=== PATIENT | male | born 1980 | race Caucasian/White ===

== ENCOUNTER 2017-01-23 18:07 | Emergency (ER) | payer MEDICARE, OTHER ==
[~2017-01-23] VITALS: Ht 167.6 cm; Wt 99.8 kg
[~2017-01-23 18:07] MED LIST: ACET325T9 PO; ARIP20TA8 PO; ASPI81TA2 PO; CHOL10003 PO; DIPH50CA PO; DIVA500T17 PO; DIVA500T9 PO; FLUO20CA8 PO; GABA-586 PO; LEVO100T5 PO; LISI40TA PO; MELO-150 PO; METO50TA2 PO; PHEN100C PO; PRAZ2CAP2 PO; PRAZ5CAP2 PO; PROC5TAB14 PO; QUET50TA5 PO; SERT100T PO; SULI200T2 PO; TOPI100T90 PO
[2017-01-23] MEDS ORDERED: IV NORMAL SALINE 1000ML BAG 1,000 ML IV ONE (18:45)
[2017-01-23] MEDS ORDERED: LORAZEPAM 2 MG/ML VIAL IV ONE (18:45)
[2017-01-23 18:50] LABS: BASO % 1 % (0-3); EOS % 0 % (0-3); HEMATOCRIT 43.3 % (39.0-53.0); HEMOGLOBIN 14.3 g/dL (13.0-17.5); LYMPH % 33 % (24-48); MEAN CORPUSCULAR HEMOGLOBIN 29 pg (25-35); MEAN CORPUSCULAR HGB CONC 33 g/dL (31-37); MEAN CORPUSCULAR VOLUME 88 fL (79-100); MONO % 6 % (0-9); NEUT % 61 % (31-73); PLATELET COUNT 224 x10^3/uL (140-400); RED BLOOD COUNT 4.94 x10^6/uL (4.30-5.70); RED CELL DISTRIBUTION WIDTH 14.1 % (11.5-14.5); WHITE BLOOD COUNT 9.3 x10^3/uL (4.0-11.0)
[2017-01-23 18:59] LABS: CALCIUM 9.2 mg/dL (8.5-10.1); CREATININE 1.2 mg/dL (0.7-1.3); GFR 69.3; POTASSIUM 3.9 mmol/L (3.5-5.1)
--- NOTE | 2017-01-23 19:00 | ED.ADGEN ---
Past Medical History Past Medical History: Hypertension, Migraines, Seizure, Other Additional Past Medical Histor: TBI,PTSD Past Surgical History: Appendectomy, Tonsillectomy, Other Additional Past Surgical Histo: R)knee realignment,Cyst R)shoulder removed, ADENOIDECTOMY Alcohol Use: None Drug Use: None Adult General Chief Complaint Chief Complaint: SEIZURE HPI HPI Patient is a 36 year old man, reported history of TBI, PTSD, seizure, who presents the emergency department via EMS with report of being found lying on the ground of the restroom at [facility] with concern for seizure activity. Per EMS report, patient experienced a 15 second to 45 second shaking episode en route to the ED, and received 5 mg of Versed IM. On arrival to the emergency department, patient is awake, alert and oriented 3, GCS 15, noted be mildly tremulous. Patient states that he has a headache on the top of his head, denies any neck pain, any shortness breath, chest pain, any weakness, numbness, tingling or other complaints. States he was feeling well before this occurred. States that "I feel after I have a seizure". Denies any drugs, alcohol or cigarettes, states he is compliant with all medications including Topamax for his seizure disorder. Review of Systems Review of Systems Constitutional: Denies fever or chills. [] Eyes: Denies change in visual acuity. [] HENT: Denies nasal congestion or sore throat. [] Respiratory: Denies cough or shortness of breath. [] Cardiovascular: Denies chest pain or edema. [] GI: Denies abdominal pain, nausea, vomiting, bloody stools or diarrhea. [] : Denies dysuria. [] Musculoskeletal: Denies back pain or joint pain. [] Integument: Denies rash. [] Neurologic: Denies focal weakness or sensory changes. [] Headache. Seizure activity. Endocrine: Denies polyuria or polydipsia. [] Lymphatic: Denies swollen glands. [] Psychiatric: Denies depression or anxiety. [] Current Medications Current Medications Current Medications Medications (Trade) Dose Ordered Sig/Madison Start Time Stop Time Status Last Admin Dose Admin Lorazepam (Ativan) 1 mg 1X ONCE 01/23/17 18:45 01/23/17 18:46 DC 01/23/17 18:49 1 MG Sodium Chloride (Iv Sodium Chloride 0.9% 1000ml Bag) 1,000 ml @ 1,000 mls/hr 1X ONCE 01/23/17 18:45 01/23/17 19:44 DC 01/23/17 18:50 1,000 MLS/HR Allergies Allergies Allergies Coded Allergies Type Severity Reaction Last Updated Verified Penicillins Allergy Intermediate Rash 10/30/14 Yes hydrocodone Allergy Intermediate Rash 04/28/16 Yes oxycodone Adverse Reaction Intermediate Nausea 04/30/16 Yes Physical Exam Physical Exam Constitutional: Well developed, well nourished, no acute distress, non-toxic appearance. [Mildly tremulous in the extremities. HENT: Normocephalic, atraumatic, bilateral external ears normal, oropharynx moist, no oral exudates, nose normal. [] Eyes: PERRLA, EOMI, conjunctiva normal, no discharge. [] Neck: Normal range of motion, no tenderness, supple, no stridor. [] Cardiovascular:Heart rate regular rhythm, no murmur, S1, S2, rubs or gallops. [] Lungs & Thorax: Bilateral breath sounds clear to auscultation, no wheezing, rhonchi, rales. No chest wall crepitus or tenderness. [] Abdomen: Bowel sounds normal, soft, no tenderness, no masses, no pulsatile masses. [] Skin: Warm, dry, no erythema, no rash. [] Back: No tenderness, no CVA tenderness. [] Extremities: No tenderness, no cyanosis, no clubbing, ROM intact, no edema. Negative Homans sign. Mildly tremulous. [] Neurologic: Alert and oriented X 3, normal motor function, normal sensory function, no focal deficits noted. [] Mildly tremulous. Psychologic: Affect normal, judgement normal, mood normal. [] Current Patient Data Vital Signs Vital Signs Date Time Temp Pulse Resp B/P Pulse Ox O2 Delivery O2 Flow Rate FiO2 01/23/17 21:07 90 18 123/67 95 Room Air 01/23/17 18:07 99.2 99.2 Lab Values Laboratory Tests Test 01/23/17 18:37 01/23/17 19:30 White Blood Count 9.3x10^3/uL (4.0-11.0) Red Blood Count 4.94x10^6/uL (4.30-5.70) Hemoglobin 14.3g/dL (13.0-17.5) Hematocrit 43.3% (39.0-53.0) Mean Corpuscular Volume 88fL (79-100) Mean Corpuscular Hemoglobin 29pg (25-35) Mean Corpuscular Hemoglobin Concent 33g/dL (31-37) Red Cell Distribution Width 14.1% (11.5-14.5) Platelet Count 224x10^3/uL (140-400) Neutrophils (%) (Auto) 61% (31-73) Lymphocytes (%) (Auto) 33% (24-48) Monocytes (%) (Auto) 6% (0-9) Eosinophils (%) (Auto) 0% (0-3) Basophils (%) (Auto) 1% (0-3) Neutrophils # (Auto) 5.7x10^3uL (1.8-7.7) Lymphocytes # (Auto) 3.0x10^3/uL (1.0-4.8) Monocytes # (Auto) 0.5x10^3/uL (0.0-1.1) Eosinophils # (Auto) 0.0x10^3/uL (0.0-0.7) Basophils # (Auto) 0.0x10^3/uL (0.0-0.2) Sodium Level 143mmol/L (136-145) Potassium Level 3.9mmol/L (3.5-5.1) Chloride Level 108mmol/L (98-107) H Carbon Dioxide Level 22mmol/L (21-32) Anion Gap 13 (6-14) Blood Urea Nitrogen 22mg/dL (8-26) Creatinine 1.2mg/dL (0.7-1.3) Estimated GFR (Cockcroft-Gault) 69.3 BUN/Creatinine Ratio 18 (6-20) Glucose Level 103mg/dL (70-99) H Lactic Acid Level 1.3mmol/L (0.4-2.0) Calcium Level 9.2mg/dL (8.5-10.1) Total Bilirubin 0.4mg/dL (0.2-1.0) Aspartate Amino Transferase (AST) 48U/L (15-37) H Alanine Aminotransferase (ALT) 121U/L (16-63) H Alkaline Phosphatase 80U/L (46-116) Total Protein 7.0g/dL (6.4-8.2) Albumin 3.9g/dL (3.4-5.0) Albumin/Globulin Ratio 1.3 (1.0-1.7) Urine Collection Type Unknown Urine Color Yellow Urine Clarity Clear Urine pH 5.5 Urine Specific [place] 1.010 Urine Protein Negativemg/dL (NEG-TRACE) Urine Glucose (UA) Negativemg/dL (NEG) Urine Ketones (Stick) Negativemg/dL (NEG) Urine Blood Negative (NEG) Urine Nitrite Negative (NEG) Urine Bilirubin Negative (NEG) Urine Urobilinogen Dipstick 0.2mg/dL (0.2 mg/dL) Urine Leukocyte Esterase Negative (NEG) Urine RBC Occ/HPF (0-2) Urine WBC 1-4/HPF (0-4) Urine Squamous Epithelial Cells Occ/LPF Urine Bacteria 0/HPF (0-FEW) Urine Opiates Screen Neg (NEG) Urine Methadone Screen Neg (NEG) Urine Barbiturates Neg (NEG) Urine Phencyclidine Screen Neg (NEG) Urine Amphetamine/Methamphetamine Neg (NEG) Urine Benzodiazepines Screen Pos (NEG) Urine Cocaine Screen Neg (NEG) Urine Cannabinoids Screen Neg (NEG) Urine Ethyl Alcohol Neg (NEG) Laboratory Tests 01/23/17 18:37 Laboratory Tests 01/23/17 18:37 EKG EKG QTC of 437, VT 140, QRS of 98, no ST elevations or depressions, abnormal ECG, does not meet STEMI criteria. As interpreted by me. [] Radiology/Procedures Radiology/Procedures [] [facility] [address] [place] [address] IMAGING REPORT Signed PATIENT: LAWANDA HASKINS ACCOUNT: [id number] : 1980 LOCATION: ER AGE: 36 SEX: M EXAM STATUS: REG ER ORD. PHYSICIAN: BITA QUINTANA DO REASON: SZ PROCEDURE: HEAD WO CONTRAST PROCEDURE CT head without intravenous contrast. HISTORY Seizure. COMPARISON CT head performed at [facility] January 20, 2017. TECHNIQUE Axial images are obtained of the head from the skull base through the vertex without IV contrast Exposure: One or more of the following individualized dose reduction techniques were utilized for this examination: 1. Automated exposure control. 2. Adjustment of the mA and/or kV according to patient size. 3. Use of iterative reconstruction technique. FINDINGS The ventricles are appropriate in size, shape, and location for the patient's age.No obvious intracranial mass, mass-effect, midline shift, hemorrhage or obvious acute infarction is identified.Basilar cisterns are patent. Bone windows demonstrate no acute calvarial abnormality.The visualized paranasal sinuses appear clear. IMPRESSION No acute intracranial process. Electronically signed by: Kaz Beebe MD (Jan 23, 2017 19:41:25) DICTATED and SIGNED BY: KAZ BEEBE MD DATE: 01/23/171940 CC: BITA QUINTANA DO; KETURAH COHEN ~ Chest x-ray: One view: Normal cardiopulmonary silhouette, no infiltrates, no effusions, no bony or soft tissue abnormalities identified. As interpreted by me. Course & Med Decision Making Course & Med Decision Making Pertinent Labs and Imaging studies reviewed. (See chart for details) Patient with tremulous extremities, is awake and oriented, with a GCS of 15 upon arrival the ED. Denies any neck pain, cervical spine cleared clinically. Patient then exhibited as shaking episode, review of records show the patient was previously evaluated in October 2014, at that time likely diagnosis of pseudoseizure. Patient states that he is taking Topamax, that he does not have a neurologist, and he is being treated by his psychiatrist [facility] CT of the head, which was unremarkable, lab for studies including lactic revealed no abnormalities. Patient's examination is consistent with history of pseudoseizure, no concerning findings identified in this evaluation. Discussed with patient, patient to continue all medications as directed by his primary care provider, to [facility], and to return to the ED for any new or concerning symptoms as discussed. Discharged home in stable condition with plan as above. Dragon Disclaimer Dragon Disclaimer This electronic medical record was generated, in whole or in part, using a voice recognition dictation system. Departure Impression: Primary Impression: Pseudoseizure Disposition: HOME, SELF-CARE Condition: STABLE BITA QUINTANA DO Jan 23, 2017 19:00
[2017-01-23 19:04] LABS: ALBUMIN 3.9 g/dL (3.4-5.0); ALBUMIN/GLOBULIN RATIO 1.3 (1.0-1.7); TOTAL BILIRUBIN 0.4 mg/dL (0.2-1.0)
--- NOTE | 2017-01-23 19:42 | RAD ---
PROCEDURE CT head without intravenous contrast. HISTORY Seizure. COMPARISON CT head performed at [facility] January 20, 2017. TECHNIQUE Axial images are obtained of the head from the skull base through the vertex without IV contrast Exposure: One or more of the following individualized dose reduction techniques were utilized for this examination: 1. Automated exposure control. 2. Adjustment of the mA and/or kV according to patient size. 3. Use of iterative reconstruction technique. FINDINGS The ventricles are appropriate in size, shape, and location for the patient's age.No obvious intracranial mass, mass-effect, midline shift, hemorrhage or obvious acute infarction is identified.Basilar cisterns are patent. Bone windows demonstrate no acute calvarial abnormality.The visualized paranasal sinuses appear clear. IMPRESSION No acute intracranial process. Electronically signed by: Kaz Wilson MD (Jan 23, 2017 19:41:25)
[2017-01-23 20:01] LABS: BILIRUBIN,URINE NEGATIVE (NEG); GLUCOSE,URINE NEGATIVE (NEG); NITRITE,URINE NEGATIVE (NEG); PH,URINE 5.5; PROTEIN,URINE NEGATIVE (NEG-TRACE); UROBILINOGEN,URINE 0.2 mg/dL (0.2 mg/dL)
[2017-01-23 20:08] LABS: BARBITURATES NEG (NEG); BENZODIAZEPINES POS (NEG); CANNABINOIDS NEG (NEG); COCAINE NEG (NEG); ETHANOL, URINE NEG (NEG); METHADONE NEG (NEG); OPIATES NEG (NEG); PHENCYCLIDINE NEG (NEG)
[2017-01-23 20:20] LABS: BACTERIA,URINE 0 /HPF (0-FEW); RBC,URINE OCC /HPF (0-2); SQUAMOUS EPITHELIAL CELL,UR OCC /LPF
[2017-01-23 21:07] VITALS: BP 123/67
--- NOTE | 2017-01-24 08:46 | RAD ---
Indication: Seizure. Diabetic Technique: Upright portable chest radiograph was obtained. Comparison is from April 28, 2016. Findings: The lungs are clear. The cardiopulmonary silhouette is within normal limits. The bony structures are intact. Leads overlie the patient. Impression: No active pulmonary disease.
--- NOTE | 2017-01-24 09:09 | EKG ---
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
== END 2017-01-23 21:27 | disposition home or self-care (01) ==
LOC: ER 18:07
DX: R56.9 Unspecified convulsions (principal); I10 Essential (primary) hypertension; F43.10 Post-traumatic stress disorder, unspecified; G43.909 Migraine, unspecified, not intractable, without status migrainosus; Z79.899 Other long term (current) drug therapy; Z88.0 Allergy status to penicillin; Z88.5 Allergy status to narcotic agent; Z87.820 Personal history of traumatic brain injury
CPT/HCPCS: 36415; 70450; 71010; 80053; 80305; 81001; 83605; 85027; 93005; 96361; 96374; 99285; J2060; J7030; G0481

== ENCOUNTER 2017-01-23 22:06 | Emergency (ER) | payer MEDICARE, OTHER ==
--- NOTE | 2017-01-24 03:40 | PHYS DOC ---
Past Medical History Past Medical History: Hypertension, Migraines, Seizure, Other Additional Past Medical Histor: TBI,PTSD Past Surgical History: Appendectomy, Tonsillectomy, Other Additional Past Surgical Histo: R)knee realignment,Cyst R)shoulder removed, ADENOIDECTOMY Alcohol Use: None Drug Use: None Adult General Chief Complaint Chief Complaint: PSYCH EVALUATION HPI HPI 36-year-old male presenting to the emergency department today not feeling safe at home. Initially he denied suicidal ideation however upon further questioning he endorsed feeling thoughts of hurting himself. He denies a plan. He does not have access to a gun. He has tried to strangle himself before. He did not require hospitalization for his last suicide attempt. He has a history of PTSD and has nightmares and flashbacks. Onset today. Location generalized. Duration intermittent. No alleviating factors present. Review of systems is negative for chest pain shortness of breath nausea vomiting fevers or chills. All other review of systems is negative unless otherwise noted in history of present illness. Review of Systems Review of Systems SEE ABOVE. Allergies Allergies Allergies Coded Allergies Type Severity Reaction Last Updated Verified Penicillins Allergy Intermediate Rash 10/30/14 Yes hydrocodone Allergy Intermediate Rash 04/28/16 Yes oxycodone Adverse Reaction Intermediate Nausea 04/30/16 Yes Physical Exam Physical Exam Constitutional: Well developed, well nourished, no acute distress, non-toxic appearance. HENT: Normocephalic, atraumatic, bilateral external ears normal, oropharynx moist, no oral exudates, nose normal. [] Eyes: PERRLA, EOMI, conjunctiva normal, no discharge. Neck: Normal range of motion, no tenderness, supple, no stridor. [] Cardiovascular:Heart rate regular rhythm, no murmur [] Lungs & Thorax: Bilateral breath sounds clear to auscultation Abdomen: Bowel sounds normal, soft, no tenderness, no masses, no pulsatile masses. [] Skin: Warm, dry, no erythema, no rash. Back: No tenderness, no CVA tenderness. [] Extremities: No tenderness, no cyanosis, no clubbing, ROM intact, no edema. [] Neurologic: Alert and oriented X 3, normal motor function, normal sensory function, no focal deficits noted. [] Psychologic: Psych: Appearance: mildly disheveled M/S: Alert and oriented Mood/Affect: Normal Speech: Normal Insight: Normal Hallucinations: None SI or HI: SI present Current Patient Data Vital Signs Vital Signs Date Time Temp Pulse Resp B/P Pulse Ox O2 Delivery O2 Flow Rate FiO2 01/23/17 22:59 98.0 97 18 143/95 97 Room Air 98.0 EKG EKG [] Radiology/Procedures Radiology/Procedures [] Course & Med Decision Making Course & Med Decision Making Pertinent Labs and Imaging studies reviewed. (See chart for details) [] 36-year-old male presenting to the emergency department today with thoughts of self-harm. Vital signs unremarkable. Lab work had been obtained today earlier. CBC unremarkable. Chemistry panel unremarkable. Urinalysis negative. We had our psychiatric assessment team see the patient and they were able to find safe placement for the patient. The patient was subsequently transferred to the [facility] in [facility] for further care. Dragon Disclaimer Dragon Disclaimer This electronic medical record was generated, in whole or in part, using a voice recognition dictation system. Departure Departure Impression: Primary Impression: Suicidal ideation Disposition: 02 TRANSFER T-[facility] Condition: STABLE Referrals: KETURAH COHEN (PCP) ADRIANNA VERA MD Jan 24, 2017 03:40
[2017-01-24 04:30] VITALS: BP 136/84
== END 2017-01-24 05:15 | disposition short-term general hospital (02) ==
LOC: ER 22:06
DX: R45.851 Suicidal ideations (principal); I10 Essential (primary) hypertension; F43.10 Post-traumatic stress disorder, unspecified; G43.909 Migraine, unspecified, not intractable, without status migrainosus; Z88.0 Allergy status to penicillin; Z88.5 Allergy status to narcotic agent; Z87.820 Personal history of traumatic brain injury
CPT/HCPCS: 99285

== ENCOUNTER 2019-03-21 12:12 | Emergency (ER) | payer MEDICARE, OTHER ==
[~2019-03-21] VITALS: Ht 167.6 cm; Wt 111.1 kg
[~2019-03-21 12:12] MED LIST changes: +ARIP20TA5 PO; -ARIP20TA8 PO; +ASPI-630 PO; -ASPI81TA2 PO; +DIVA-53 PO; -DIVA500T9 PO; -GABA-586 PO; +GABA300C18 PO; +LISI-130 PO; -LISI40TA PO; -MELO-150 PO; +MELO15TA23 PO; -METO50TA2 PO; +METO50TA6 PO; +TOPI100T8 PO; -TOPI100T90 PO
[2019-03-21 12:29] LABS: BASO % 0 % (0-3); EOS # 0.1 x10^3/uL (0.0-0.7); EOS % 1 % (0-3); HEMATOCRIT 43.6 % (39.0-53.0); HEMOGLOBIN 14.5 g/dL (13.0-17.5); LYMPH % 25 % (24-48); MEAN CORPUSCULAR HEMOGLOBIN 28 pg (25-35); MEAN CORPUSCULAR HGB CONC 33 g/dL (31-37); MEAN CORPUSCULAR VOLUME 83 fL (79-100); MONO # 0.4 x10^3/uL (0.0-1.1); MONO % 6 % (0-9); NEUT # 5.3 x10^3uL (1.8-7.7); NEUT % 68 % (31-73); PLATELET COUNT 244 x10^3/uL (140-400); RED BLOOD COUNT 5.26 x10^6/uL (4.30-5.70); RED CELL DISTRIBUTION WIDTH 14.2 % (11.5-14.5); WHITE BLOOD COUNT 7.8 x10^3/uL (4.0-11.0)
[2019-03-21 12:36] LABS: CALCIUM 9.1 mg/dL (8.5-10.1); GFR 84.5; POTASSIUM 3.8 mmol/L (3.5-5.1)
[2019-03-21 12:42] LABS: ALBUMIN 3.9 g/dL (3.4-5.0); ALBUMIN/GLOBULIN RATIO 1.6 (1.0-1.7); MAGNESIUM 1.5 mg/dL (1.8-2.4); TOTAL BILIRUBIN 0.4 mg/dL (0.2-1.0); TOTAL PROTEIN 6.4 g/dL (6.4-8.2)
--- NOTE | 2019-03-21 12:49 | RAD ---
Single view chest dated 03/21/2019: No comparison available. Clinical Indication: Chest pain. Findings: Single upright portable exam of the chest was performed. Heart size and mediastinal contours are within normal limits given technique. The lungs are clear without evidence of focal consolidation. Vascular interstitium is within normal limits. Impression:: Negative portable chest. Electronically signed by: Kaz Lau MD (03/21/2019 12:46 PM) [id number]
--- NOTE | 2019-03-21 13:01 | PHYS DOC ---
Past Medical History Past Medical History: Anxiety, Asthma, Diabetes-Type II, Hypertension, Migraines, Seizure, Other Additional Past Medical Histor: TBI,PTSD Past Surgical History: Appendectomy, Tonsillectomy, Other Additional Past Surgical Histo: R)knee realignment,Cyst R)shoulder removed,ADENOIDECTOMY Alcohol Use: None Drug Use: None Adult General Chief Complaint Chief Complaint: CHEST PAIN HPI HPI Patient is a 38 year old male who brought in by EMS because of chest pain. Patient complaining of substernal sharp and aching pain since yesterday morning when he went to [facility] as a constant pain with radiation to his back and associated with shortness of breath, dizziness, palpitation. Patient denies nausea and fever and chills and cough. Patient had aspirin and nitroglycerin 1 by EMS and pain dropped from 6 to 5. Patient states he had history of diabetes mellitus, hypertension, dyslipidemia and PE with cardiac tenderness and currently does not take any medication except for insulin. He denies a smoking. Review of Systems Review of Systems Constitutional: Denies fever or chills [] Eyes: Denies change in visual acuity, redness, or eye pain [] HENT: Denies nasal congestion or sore throat [] Respiratory: Denies cough , reports shortness of breath [] Cardiovascular: No additional information not addressed in HPI [] GI: Denies abdominal pain, nausea, vomiting, bloody stools or diarrhea [] : Denies dysuria or hematuria [] Musculoskeletal: Denies back pain or joint pain [] Integument: Denies rash or skin lesions [] Neurologic: Denies headache, focal weakness or sensory changes [] Endocrine: Denies polyuria or polydipsia [] All other systems were reviewed and found to be within normal limits, except as documented in this note. Current Medications Current Medications Current Medications Medications (Trade) Dose Ordered Sig/Madison Start Time Stop Time Status Last Admin Dose Admin Ketorolac Tromethamine (Toradol 30mg Vial) 30 mg 1X ONCE 03/21/19 13:15 03/21/19 13:16 DC 03/21/19 14:14 30 MG Magnesium Oxide (Magnesium Oxide) 400 mg DAILY 03/21/19 13:30 03/21/19 15:44 DC 03/21/19 14:14 400 MG Ondansetron HCl (Zofran Odt) 4 mg 1X ONCE 03/21/19 14:30 03/21/19 14:31 DC 03/21/19 14:50 4 MG Allergies Allergies Allergies Coded Allergies Type Severity Reaction Last Updated Verified Penicillins Allergy Intermediate Rash 10/30/14 Yes hydrocodone Allergy Intermediate Rash 04/28/16 Yes oxycodone Adverse Reaction Intermediate Nausea 04/30/16 Yes Physical Exam Physical Exam Constitutional: Well nourished, no acute distress, non-toxic appearance. [] HENT: Normocephalic, atraumatic, oropharynx moist, no oral exudates, nose normal. [] Eyes: PERRLA, EOMI, conjunctiva normal, no discharge. [] Neck: Normal range of motion, no tenderness, supple, no stridor. [] Cardiovascular:Heart rate regular rhythm, no murmur [] Lungs & Thorax: Bilateral breath sounds clear to auscultation [] Abdomen: Bowel sounds normal, soft, no tenderness, no masses, no pulsatile masses. [] Skin: Warm, dry, no erythema, no rash. [] Back: No tenderness, no CVA tenderness. [] Extremities: No tenderness, no cyanosis, no clubbing, ROM intact, no edema. [] Neurologic: Alert and oriented X 3, normal motor function, normal sensory function, no focal deficits noted. [] Psychologic: Affect normal, judgement normal, mood normal. [] Current Patient Data Vital Signs Vital Signs Date Time Temp Pulse Resp B/P (MAP) Pulse Ox O2 Delivery O2 Flow Rate FiO2 03/21/19 15:15 86 20 181/90 (120) 92 Room Air 03/21/19 14:45 2.0 03/21/19 12:28 99.0 99.0 Lab Values Laboratory Tests Test 03/21/19 12:17 White Blood Count 7.8 x10^3/uL (4.0-11.0) Red Blood Count 5.26 x10^6/uL (4.30-5.70) Hemoglobin 14.5 g/dL (13.0-17.5) Hematocrit 43.6 % (39.0-53.0) Mean Corpuscular Volume 83 fL (79-100) Mean Corpuscular Hemoglobin 28 pg (25-35) Mean Corpuscular Hemoglobin Concent 33 g/dL (31-37) Red Cell Distribution Width 14.2 % (11.5-14.5) Platelet Count 244 x10^3/uL (140-400) Neutrophils (%) (Auto) 68 % (31-73) Lymphocytes (%) (Auto) 25 % (24-48) Monocytes (%) (Auto) 6 % (0-9) Eosinophils (%) (Auto) 1 % (0-3) Basophils (%) (Auto) 0 % (0-3) Neutrophils # (Auto) 5.3 x10^3uL (1.8-7.7) Lymphocytes # (Auto) 2.0 x10^3/uL (1.0-4.8) Monocytes # (Auto) 0.4 x10^3/uL (0.0-1.1) Eosinophils # (Auto) 0.1 x10^3/uL (0.0-0.7) Basophils # (Auto) 0.0 x10^3/uL (0.0-0.2) D-Dimer (Cathie) 0.28 ug/mlFEU (0.00-0.50) Sodium Level 142 mmol/L (136-145) Potassium Level 3.8 mmol/L (3.5-5.1) Chloride Level 105 mmol/L (98-107) Carbon Dioxide Level 24 mmol/L (21-32) Anion Gap 13 (6-14) Blood Urea Nitrogen 13 mg/dL (8-26) Creatinine 1.0 mg/dL (0.7-1.3) Estimated GFR (Cockcroft-Gault) 84.5 BUN/Creatinine Ratio 13 (6-20) Glucose Level 124 mg/dL (70-99) H Calcium Level 9.1 mg/dL (8.5-10.1) Magnesium Level 1.5 mg/dL (1.8-2.4) L Total Bilirubin 0.4 mg/dL (0.2-1.0) Aspartate Amino Transferase (AST) 37 U/L (15-37) Alanine Aminotransferase (ALT) 80 U/L (16-63) H Alkaline Phosphatase 76 U/L (46-116) Creatine Kinase 154 U/L (39-308) Troponin I Quantitative < 0.017 ng/mL (0.000-0.055) BU-Dli-L-Type Natriuretic Peptide 76 pg/mL (0-124) Total Protein 6.4 g/dL (6.4-8.2) Albumin 3.9 g/dL (3.4-5.0) Albumin/Globulin Ratio 1.6 (1.0-1.7) Lipase 88 U/L (73-393) Laboratory Tests 03/21/19 12:17 Laboratory Tests 03/21/19 12:17 EKG EKG EKG Interpreted by me. EKG at 1219 showed normal sinus rhythm at rate of 88, left thompson axis, nonspecific ST and T-wave abnormalities without ST elevation. Radiology/Procedures Radiology/Procedures [facility] [address] [place] [address] IMAGING REPORT Signed PATIENT: LAWANDA HASKINS ACCOUNT: [id number] : 1980 LOCATION: ER AGE: 38 SEX: M EXAM STATUS: PRE ER ORD. PHYSICIAN: LISA TRUONG MD REASON: chest pain since yesterday PROCEDURE: PORTABLE CHEST 1V Single view chest dated 03/21/2019: No comparison available. Clinical Indication: Chest pain. Findings: Single upright portable exam of the chest was performed. Heart size and mediastinal contours are within normal limits given technique. The lungs are clear without evidence of focal consolidation. Vascular interstitium is within normal limits. Impression:: Negative portable chest. Electronically signed by: Kaz Lau MD (03/21/2019 12:46 PM) [facility] DICTATED and SIGNED BY: KAZ LAU MD DATE: 03/21/19 1246 Course & Med Decision Making Course & Med Decision Making Pertinent Labs and Imaging studies reviewed. (See chart for details) Evaluation of patient in ER showed 38-year-old male patient brought in by EMS because of chest pain since yesterday morning. Patient, for the but rated his pain 5/10. Patient had unremarkable EKG and labs except for mild hypomagnesemia at 1.5 and treated with oral magnesium. Toradol was given with improvement of his pain. Plan discharge patient home with diagnosis of non-cardiac chest pain. Patient had history of PE d-dimer was less than 0.5 and PE was rulled out. Dragon Disclaimer Dragon Disclaimer This electronic medical record was generated, in whole or in part, using a voice recognition dictation system. Departure Departure Impression: Primary Impression: Musculoskeletal chest pain Additional Impressions: Hypomagnesemia History of traumatic brain injury Disposition: HOME, SELF-CARE (@1344) Condition: IMPROVED Referrals: KETURAH COHEN (PCP) Patient Instructions: Chest Wall Pain, Hypomagnesemia Additional Instructions: Continue home medication Follow-up with your primary care physician in 2-3 days Return to ER if not getting better Scripts Naproxen (NAPROSYN) 500 Mg Tablet 1 TAB PO BID for pain, #20 TAB Prov: LISA TRUONG MD 03/21/19 Problem Qualifiers LISA TRUONG MD March 21, 2019 13:01
[2019-03-21] MEDS ORDERED: KETOROLAC 30 MG/ML VIAL. IV ONE (13:15)
--- NOTE | 2019-03-21 13:24 | EKG ---
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
[2019-03-21] MEDS ORDERED: MAGNESIUM OXIDE 400 MG TABLET PO SCH (13:30)
[2019-03-21] MEDS ORDERED: NAPR-683 PO (13:47)
[2019-03-21] MEDS ORDERED: ONDANSETRON ODT 4 MG TAB.RAPDIS. PO ONE (14:30)
[2019-03-21 15:15] VITALS: BP 181/90
== END 2019-03-21 15:33 | disposition home or self-care (01) ==
LOC: ER 12:12
DX: R07.2 Precordial pain (principal); E83.42 Hypomagnesemia; Z87.820 Personal history of traumatic brain injury; F43.10 Post-traumatic stress disorder, unspecified; J45.909 Unspecified asthma, uncomplicated; E11.9 Type 2 diabetes mellitus without complications; I10 Essential (primary) hypertension; G43.909 Migraine, unspecified, not intractable, without status migrainosus; F41.9 Anxiety disorder, unspecified; Z88.0 Allergy status to penicillin; Z88.5 Allergy status to narcotic agent
CPT/HCPCS: 36415; 71045; 80053; 82550; 83690; 83735; 83880; 84484; 85025; 85379; 93005; 96374; 99285; J1885; Q0162